=== PATIENT | female | born 1980 | race Caucasian/White ===

== ENCOUNTER 2016-09-13 10:21 | Emergency (ER) | payer BC ==
[2016-09-13] MEDS ORDERED: Ketorolac INJ* 30 MG/ML 1 ML VIAL IV PUSH ONE ×2 (11:18→15:51)
[2016-09-13 11:52] LABS: Hematocrit 43 % (35-47); Hemoglobin 14.6 g/dl (12.0-16.0); Mean Corpuscular HGB Conc 34 g/dl (31-36); Mean Corpuscular Hemoglobin 31 pg (27-31); Mean Corpuscular Volume 90 fL (80-97); Mean Platelet Volume 9 um3 (7.4-10.4); Red Blood Count 4.79 10^6/ul (4.0-5.4); Red Cell Distribution Width 13 % (10.5-15); White Blood Count 8.8 10^3/ul (3.5-10.8)
[2016-09-13 11:53] LABS: Urine Bacteria 1+ (Absent); Urine Bilirubin Negative (Negative); Urine Glucose Negative (Negative); Urine Nitrite Negative (Negative)
--- NOTE | 2016-09-13 11:56 | ED ---
Abdominal Pain/Female - HPI Summary HPI Summary: 35 female sent over from family medicine doctor at [facility] with complaints of abdominal pain that began 1 week ago and has persisted since. She complains of lower left and right abdominal pain that she describes as sharp at times, and cramping. She failed jump rope test while at family doctor office. She has a history of IBS and ovarian cysts. She denies any diarrhea or vomiting but admits to nausea. Has been having normal bowel movements with her last being yesterday. Denies urinary symptoms and genitalia symptoms. Does have a history of kidney stones. She tried taking OTC medication for pain however did not have much relief. Denies blood in urine or stool. Has not related the pain to get better or worse with position or foods. Denies eating out. and fever/chills. Sent here to rule out appey. No new sexual partners, for 9 years. - History of Current Complaint Chief Complaint: EDAbdPain Stated Complaint: ABD PAIN Hx Obtained From: Patient Hx Last Menstrual Period: tubal ligation ?: No Onset/Duration: Sudden Onset, Lasting Weeks, Still Present Timing: Constant Severity Initially: Moderate Severity Currently: Severe Pain Intensity: 10 Pain Scale Used: 0-10 Numeric Location: Discrete At: RLQ, Discrete At: LLQ, Suprapubic, Umbilical Radiates: No Character: Sharp, Cramping Aggravating Factor(s): Nothing Alleviating Factor(s): Nothing Associated Signs and Symptoms: Positive: Nausea. Negative: Fever, Constipation , Blood in Stool, Urinary Symptoms, Vaginal Bleeding, Vomiting, Diarrhea Allergies/Adverse Reactions: Allergies Allergy/AdvReac Type Severity Reaction Status Date / Time Azithromycin [From Zithromax] Allergy Abdominal Verified 09/13/16 10:35 Pain PMH/Surg Hx/FS Hx/Imm Hx Endocrine/Hematology History: Denies: Hx Diabetes, Hx Thyroid Disease Cardiovascular History: Denies: Hx Hypertension Respiratory History: Denies: Hx Asthma, Hx Chronic Obstructive Pulmonary Disease (COPD) GI History: Reports: Hx Irritable Bowel Denies: Hx Ulcer History: Reports: Hx Kidney Stones, Other Problems/Disorders - ovarian cysts - Surgical History Surgery Procedure, Year, and Place: tubal ligation - Immunization History Immunizations Up to Date: Yes Infectious Disease History: No Infectious Disease History: Denies: Hx Hepatitis, Hx Human Immunodeficiency Virus (HIV), Traveled Outside the [place] in Last 30 Days - Family History Known Family History: Positive: Cardiac Disease - Social History Alcohol Use: None Substance Use Type: Reports: None Smoking Status (MU): Never Smoked Tobacco Review of Systems Constitutional: Negative Eyes: Negative ENT: Negative Cardiovascular: Negative Respiratory: Negative Positive: Abdominal Pain, Nausea Genitourinary: Negative Musculoskeletal: Negative Skin: Negative Neurological: Negative Psychological: Normal All Other Systems Reviewed And Are Negative: Yes Physical Exam Triage Information Reviewed: Yes Vital Signs On Initial Exam: Initial Vitals Temp Pulse Resp BP Pulse Ox 97.9 F 82 16 123/78 100 09/13/16 10:31 09/13/16 10:31 09/13/16 10:31 09/13/16 10:31 09/13/16 10:31 Vital Signs Reviewed: Yes Appearance: Positive: Well-Appearing, Well-Nourished, Pain Distress - mild Skin: Positive: Warm, Skin Color Reflects Adequate Perfusion, Dry Head/Face: Positive: Normal Head/Face Inspection Eyes: Positive: Normal, Conjunctiva Clear ENT: Positive: Normal ENT inspection, Hearing grossly normal, Pharynx normal Neck: Positive: Supple, Nontender, No Lymphadenopathy Respiratory/Lung Sounds: Positive: Clear to Auscultation, Breath Sounds Present Cardiovascular: Positive: Normal, RRR, Pulses are Symmetrical in both Upper and Lower Extremities Abdomen Description: Positive: No Organomegaly, Soft, Guarding, Other: - tenderness on palpation of suprapubic, LLQ, RLQ. No obivous deformity or discolorations noted.. Negative: CVA Tenderness (R), CVA Tenderness (L), Distended, McBurney's Point Tenderness, Peritoneal Signs Bowel Sounds: Positive: Present Pelvic Exam: Positive: external exam normal, speculum exam normal, bimanual exam normal, no cerv. motion tender. Negative: cervicitis, mass, tender w/ cervical motion, tender adnexa, tender uterus Diagnostics - Vital Signs Vital Signs Temp Pulse Resp BP Pulse Ox 09/13/16 10:31 97.9 F 82 16 123/78 100 - Laboratory Lab Results: Lab Results 09/13/16 09/13/16 Range/Units 11:31 11:40 WBC 8.8 (3.5-10.8) 10^3/ul RBC 4.79 (4.0-5.4) 10^6/ul Hgb 14.6 (12.0-16.0) g/dl Hct 43 (35-47) % MCV 90 (80-97) fL MCH 31 (27-31) pg MCHC 34 (31-36) g/dl RDW 13 (10.5-15) % Plt Count 186 (150-450) 10^3/ul MPV 9 (7.4-10.4) um3 Neut % (Auto) 68.7 (38-83) % Lymph % (Auto) 24.3 L (25-47) % [place] % (Auto) 5.3 (1-9) % Eos % (Auto) 1.2 (0-6) % Baso % (Auto) 0.5 (0-2) % Absolute Neuts (auto) 6.1 (1.5-7.7) 10^3/ul Absolute Lymphs (auto) 2.2 (1.0-4.8) 10^3/ul Absolute Monos (auto) 0.5 (0-0.8) 10^3/ul Absolute Eos (auto) 0.1 (0-0.6) 10^3/ul Absolute Basos (auto) 0 (0-0.2) 10^3/ul Absolute Nucleated RBC 0 10^3/ul Nucleated RBC % 0 Urine Color Yellow Urine Appearance Cloudy Urine pH 6.0 (5-9) Ur Specific [place] 1.008 L (1.010-1.030) Urine Protein Negative (Negative) Urine Ketones Negative (Negative) Urine Blood Negative (Negative) Urine Nitrate Negative (Negative) Urine Bilirubin Negative (Negative) Urine Urobilinogen Negative (Negative) Ur Leukocyte Esterase 2+ H (Negative) Urine WBC (Auto) Trace(0-5/hpf) (Absent) Urine RBC (Auto) 1+(3-5/hpf) H (Absent) Ur Squamous Epith Cells Present H (Absent) Urine Bacteria 1+ H (Absent) Urine Glucose Negative (Negative) Result Diagrams: 09/13/16 11:40 09/13/16 11:40 Lab Statement: Any lab studies that have been ordered have been reviewed, and results considered in the medical decision making process. - CT abdomen/pelvis CT Interpretation: No Acute Changes - normal appendix documented. physiologic small volume of free pelvic fluid. Prominent RIGHT ureter without evidence for a urteral stone or obstrucing lesion along the course of the ureter. Negative for dilatation of the IGHT intrarenal collecting system. 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 Interpretation Completed By: Radiologist - Ultrasound No standard instances Ultrasound Interpretation: No Acute Changes - RETROVERTED UTERUS AND SMALL AMOUNT OF FREE INTRAPERITONEAL FLUID, OTHERWISE UNREMARKABLE STUDY. Ultrasound Interpretation Completed By: Radiologist Re-Evaluation - Re-Evaluation First Eval Re-Evaluation Time: 12:00 Change: Improved - had some relief and is comfortable after toradol, fluids, zofran Second Eval Re-Evaluation Time: 15:00 Change: Worse - patient was beginning to feel pain again, would like more pain medication Third Eval Re-Evaluation Time: 15:55 Change: Improved - feeling better after medication Abdominal Pain Fem Course/Dx - Course Course Of Treatment: Labs, urinalysis and pelvic exam obtained. Unremarkable. Possible UTI shown in U/A, will be treated. U/S transvaginal and CT w/ contrast abdomen pelvis obtained and negative for acute changes. Given toradol and zofran for pain and nausea. STD cultures not obtained due to patient preference. Affirm obtained and sent to lab. Spoke with Dr Toussaint about case who agrees there are no critical findings at this time. will be d/c with pain medication and follow up. aware of worsening signs and symptoms. - Diagnoses Differential Diagnosis: Positive: Appendicitis, Constipation, Gall Bladder Disease, Irritable Bowel Syndrome, Ovarian Cyst, Pelvic Inflammatory Disease, , Urinary Tract Infection Provider Diagnoses: Urinary tract infection, Abdominal pain of unknown etiology - Provider Notifications Discussed Care Of Patient With: Dr Toussaint Discharge - Discharge Plan Condition: Stable Disposition: HOME Prescriptions: Sulfamethox/Trimethoprim DS* [Bactrim DS 800/160 TAB*] 1 tab PO BID #10 tab Patient Education Materials: Urinary Tract Infection in Women (ED), Abdominal Pain (ED) Referrals: VERA Thornton [Primary Care Provider] - Additional Instructions: Take OTC Ibuprofen or Aleve to help with your pain. Take prescribed antibiotic as directed to treat your UTI for 3 days, unless symptoms persist then take full 5 day supply. Recommend taking probiotic pills daily to promote a healthy digestive system. Stay away from foods that worsen your IBS. Drink plenty of fluids. Follow up with your PCP/OBGYN to discuss abdominal pain as well as GI specialist to determine other etiology and for further evaluation. If symptoms worsen such as vomiting, blood in stool, fever/chills or increasing pain please seek medical attention promptly.
[2016-09-13 12:08] LABS: ALT 11 U/L (7-52); AST 15 U/L (13-39); Albumin 4.6 g/dL (3.2-5.2); Alkaline Phosphatase 36 U/L (34-104); Anion Gap 6 mmol/L (2-11); BUN/Creatinine Ratio 11.3 (8-20); Blood Urea Nitrogen 8 mg/dL (6-24); C Reactive Protein < 1.00 mg/L (< 5.00); CO2 Carbon Dioxide 26 mmol/L (22-32); Calcium 9.7 mg/dL (8.6-10.3); Chloride 104 mmol/L (101-111); EGFR African American 120.5 (>60); EGFR Non-African American 93.7 (>60); Globulin 2.9 g/dL (2-4); Glucose 86 mg/dL (70-100); Lipase 29 U/L (11.0-82.0); Potassium 3.6 mmol/L (3.5-5.0); Sodium 136 mmol/L (133-145); Total Protein 7.5 g/dL (6.4-8.9)
--- NOTE | 2016-09-13 12:35 | RAD ---
Indication: Pelvic pain evaluate for ovarian cysts. COMPARISON: Comparison is made with a prior pelvic ultrasound from September 05, 2010. TECHNIQUE: Multiple real-time transvaginal images of the pelvis were obtained. FINDINGS: The uterus is normal in size and retroverted. The uterus measured 7.5 x 4.7 x 6.3 cm. The endometrial echo measured 0.6 cm in thickness. The right ovary measured 3.3 x 1.6 x 2.4 cm. The left ovary measured 4.6 x 2.0 x 3.0 cm. There is vascular flow within both ovaries. There is a small amount of free intraperitoneal fluid in the cul-de-sac. IMPRESSION: RETROVERTED UTERUS AND SMALL AMOUNT OF FREE INTRAPERITONEAL FLUID, OTHERWISE UNREMARKABLE STUDY.
[2016-09-13] MEDS ORDERED: Iohexol 300* (CONTRAST) 10 ML SDV IV ONE (12:47)
--- NOTE | 2016-09-13 14:13 | RAD ---
INDICATION: Lower abdominal pain. Assess for appendicitis. COMPARISON: September 13, 2016 pelvic ultrasound and August 17, 2013 renal ultrasound. TECHNIQUE: Multidetector CT images were obtained from the lung bases to the ischial tuberosities with 79 mL Omnipaque 300 IV and oral contrast. Multiplanar reformation. REPORT: Unremarkable visualized inferior thorax. No CT abnormality of the liver, gallbladder, pancreas, or top normal size spleen. Negative for CT abnormality of the upper GI, small bowel, communicating contrast opacified retrocecal appendix, or colon. Physiologic small volume of free pelvic fluid. Negative for free air. Small fat-containing umbilical hernia without inflammatory change. Normal adrenal glands. Unremarkable kidneys with symmetric nephrograms and pyelograms. Mildly prominent RIGHT ureter without evidence for a ureteral stone or lesion along the course of the RIGHT ureter. Unremarkable LEFT ureter and distended urinary bladder. Unremarkable retroverted uterus and bilateral adnexal regions. Negative for lymphadenopathy. Unremarkable dominant retroperitoneal vasculature. Negative for suspicious osseous lesions. IMPRESSION: 1. Normal appendix documented. 2. Physiologic small volume of free pelvic fluid. 3. Prominent RIGHT ureter without evidence for a ureteral stone or obstructing lesion along the course of the ureter. Negative for dilatation of the RIGHT intrarenal collecting system. 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
[2016-09-13] MEDS ORDERED: HYDROcodone/ACETAMIN 5-325 MG* 1 TAB PO ONE (15:43)
[2016-09-13] MEDS ORDERED: Ketorolac INJ* 30 MG/ML 1 ML VIAL ONE (15:52)
[2016-09-13 16:47] VITALS: BP 105/68
== END 2016-09-13 16:46 | disposition home or self-care (01) ==
LOC: ED 10:21
DX: N39.0 Urinary tract infection, site not specified (principal); R10.9 Unspecified abdominal pain
CPT/HCPCS: 36415; 74177; 76830; 80053; 81003; 81015; 83605; 83690; 84702; 85025; 86140; 87086; 87480; 87510; 87660; 96374; 96375; 99283; J1885; Q9967